=== PATIENT | male | born 1950 | race African-American/Black ===

== ENCOUNTER 2017-09-25 12:13 | Outpatient (CLI) | payer MEDICARE, MEDICAID ==
--- NOTE | 2017-09-25 14:28 | RAD ---
PA AND LATERAL CHEST: Date: 09/25/17 INDICATION: Dyspnea. COMPARISON: Prior exam dated 09/03/17. FINDINGS: No focal consolidation is evident. The aorta is tortuous. No pleural effusion is evident. No acute os seous abnormality is noted. IMPRESSION: No definite acute cardiopulmonary abnormality. POS: [facility]
== END 2017-09-25 12:14 | disposition home or self-care (01) ==
LOC: RAD 12:13
PROVIDERS: ATTEND Internal Medicine Critical Care Medicine
DX: R06.00 Dyspnea, unspecified (principal)
CPT/HCPCS: 71046

== ENCOUNTER 2017-12-03 10:23 | Outpatient (CLI) | payer MEDICARE, MEDICAID | END 2017-12-03 10:24 | disposition home or self-care (01) | LOC: DTY/OP 10:23 | PROVIDERS: ATTEND Family Medicine | DX: E11.65 Type 2 diabetes mellitus with hyperglycemia (principal); R63.4 Abnormal weight loss | CPT/HCPCS: 97802 ==

== ENCOUNTER 2017-12-16 12:40 | Outpatient (CLI) | payer MEDICARE, MEDICAID ==
--- NOTE | 2017-12-16 14:25 | ULT ---
LEFT LOWER EXTREMITY ARTERIAL DOPPLER EVALUATION WITH SPECTRAL ANALYSIS AND COLOR FLOW EVALUATION: DATE: 12/16/17. HISTORY: Left lower extremity pain and swelling. FINDINGS: Perry scale, color flow, Doppler evaluation, and spectral analysis of the left lower extremity arteria l vessels is performed with 2D imaging. There are biphasic waveforms seen within the left lower extr emity, common femoral, superficial femoral, and popliteal arteries with normal velocity measurements in these arterial vessels. There is biphasic waveform present within the left lower extremity profunda femoral artery. There is a suggestion of triphasic waveform involving the left percutaneous transluminal angioplasty, but there are elevated peak systolic velocities in he left lower extremity posterior tibial artery w hich are greater than the arterial vessels in the upper left lower extremity. The greatest velocity measurement is in the distal left posterior tibial artery at 166.5 cm/s suggesting atherosclerotic di sease and narrowing within the left posterior tibial artery. There are biphasic waveforms in the left anterior tibial artery. A triphasic waveform is seen in the left lower extremity dorsalis pedis artery. IMPRESSION: 1. Increased peak systolic velocity measurements in the left lower extremity posterior tibial arteri es suggesting significant stenoses. 2. Triphasic waveforms extending from the left common femoral to popliteal artery with normal veloci ty measurements. POS: [facility]
== END 2017-12-16 12:41 | disposition home or self-care (01) ==
LOC: ULT 12:40
PROVIDERS: ATTEND Family Medicine
DX: M79.89 Other specified soft tissue disorders (principal)
CPT/HCPCS: 93923

== ENCOUNTER 2018-02-05 14:49 | Outpatient (CLI) | payer MEDICARE, MEDICAID | END 2018-02-05 14:50 | disposition home or self-care (01) | LOC: BICULT 14:49 | PROVIDERS: ATTEND Urology | DX: N28.1 Cyst of kidney, acquired (principal); R31.29 Other microscopic hematuria | CPT/HCPCS: 76770 ==

== ENCOUNTER 2022-04-03 12:18 | Outpatient (CLI) | payer MEDICARE, MEDICAID ==
[2022-04-03 13:26] LABS: #Eosinphils 0.3 10x3/uL (0.0-0.5); #Monocytes 0.5 10x3/uL (0.0-1.1); #Neutrophils 3.7 10x3/uL (1.5-8.4); %Basophils 0.7 % (0.0-2.0); %Eosinophils 4.3 % (0.0-6.0); %Lymphocytes 22.2 % (18.0-47.0); %Monocytes 8.9 % (0.0-10.0); %Neutrophils 63.7 % (40.0-75.0); Mean Corpuscular HGB CONC 33.6 g/dL (32.0-36.0); Mean Corpuscular Hemoglobin 26.3 pg (27.0-33.0); Mean Corpuscular Volume 78.4 fl (81.2-95.1); Mean Platelet Volume 11.1 fl (7.4-10.4); Platelet Count 185 10x3/uL (150-450); Red Blood Cell (RBC) Count 3.42 10x6/uL (4.32-5.72); White Blood Cell (WBC) Count 5.8 10x3/uL (3.5-10.5)
[2022-04-03 13:49] LABS: Anion Gap 10 mmol/L (10-20); BUN (Urea Nitrogen) 30 mg/dL (8.4-25.7); Calc. Creatinine Clearance 0 mL/min (70-130); Carbon Dioxide 23 mmol/L (23-31); Chloride 109 mmol/L (98-107); Estimated GFR 10; Glucose 185 mg/dL (80-115); Potassium 3.6 mmol/L (3.5-5.1); Sodium 138 mmol/L (136-145)
== END 2022-04-03 12:19 | disposition home or self-care (01) ==
LOC: LABBT 12:18
PROVIDERS: ATTEND Family Medicine
DX: Z01.818 Encounter for other preprocedural examination (principal); R09.89 Other specified symptoms and signs involving the circulatory and respiratory systems; Z20.822 Contact with and (suspected) exposure to COVID-19
CPT/HCPCS: 71046; 80048; 85025; 87811; 93005; 93010

== ENCOUNTER 2022-04-05 05:30 | Inpatient (IN) | payer OTHER, MEDICAID ==
[2022-04-05] MEDS ORDERED: Bupivacaine 0.25% HCL 30 ML VIAL ONE (07:01)
[2022-04-05] MEDS ORDERED: Heparin 10,000 UNITS/ 10 ML VIAL ONE ×2 (07:01→08:33)
[2022-04-05] MEDS ORDERED: Protamine Sulfate 50 MG/5 ML VIAL ONE (07:01)
[2022-04-05] MEDS ORDERED: Heparin 5,000 UNITS/ML VIAL ONE (07:01)
[2022-04-05] MEDS ORDERED: EPINEPHrine 1 MG/ML AMP ONE (07:01)
[2022-04-05] MEDS ORDERED: Lidocaine 1% (PF) 30 ML VIAL ONE (07:05)
[2022-04-05] MEDS ORDERED: Acetaminophen 500 MG TAB ONE (07:16)
[2022-04-05] MEDS ORDERED: Midazolam HCl 2 mg/2 ml Vial ONE ×2 (07:37→07:55)
[2022-04-05] MEDS ORDERED: Ropivacaine 0.5% HCl/PF (150 MG/30 ML VIAL) ONE ×2 (07:53→08:14)
[2022-04-05] MEDS ORDERED: Dextrose 50% Abboject 50 ML SYRINGE ONE (08:05)
[2022-04-05] MEDS ORDERED: Sodium Chloride 0.9% 0 ML ONE (08:10)
[2022-04-05] MEDS ORDERED: CEFAZOLIN 2 GM VIAL ONE (08:10)
[2022-04-05] MEDS ORDERED: Sodium Chloride 0.9% 100 ML ONE (08:11)
[2022-04-05] MEDS ORDERED: Ondansetron PF 4 MG/2 ML Vial IVP PRN (11:56)
[2022-04-05] MEDS ORDERED: Ondansetron ODT 4 MG TAB PO PRN (11:56)
[2022-04-05] MEDS ORDERED: HumaLOG 300 UNITS/3 ML VIAL SC PRN (11:56)
[2022-04-05] MEDS ORDERED: Acetaminophen 500 MG TAB PO PRN (11:56)
[2022-04-05] MEDS ORDERED: Dextrose 50% Abboject 50 ML SYRINGE SLOW IVP PRN (11:56)
[2022-04-05] MEDS ORDERED: Dextrose 5% in Water 1,000 ML IV PRN (11:56)
[2022-04-05] MEDS ORDERED: Albuterol Sulfate 2.5 mg/3 ml Neb NEB PRN (13:07)
[2022-04-05 14:52] LABS: HBSAB Concentration Less than 8.00 mIU/mL; HBSAg Index 0.26 S/CO (0-0.99); Hep B Surf AB Non-Reactive (NonReactive); Hep B Surf Ag Non-Reactive S/CO (NonReactive)
[2022-04-05 16:06] LABS: Hep C Index 2.56 S/CO (0-0.79)
[2022-04-05 16:08] LABS: Hep B Core Total Index 1.65 S/CO (0-0.79)
[2022-04-05 16:09] LABS: Hep C IgG Ab Reflex HepC Qnt (NonReactive)
[2022-04-05 16:13] LABS: Hep B Core Total Ab Reactive (NonReactive)
[2022-04-05 17:09] VITALS: BMI 28.1
[2022-04-05] MEDS ORDERED: Tuberculin PPD 0.1 ML VIAL I-DERMAL SCH (17:15)
[2022-04-05] MEDS ORDERED: Epoetin (ESRD) 10,000 UNITS/ML VIAL SC SCH (17:30)
[2022-04-05] MEDS: Pregabalin 50 MG CAP PO SCH ×2 (17:32→20:31)
[2022-04-05] MEDS: HYDROcodone/Acetaminophen 5/325 mg Tablet PO PRN ×2 (17:34→21:49)
[2022-04-05] MEDS: Ezetimibe 10 MG TAB PO SCH (20:30)
[2022-04-05] MEDS: Atorvastatin Calcium 40 MG TAB PO SCH (20:30)
[2022-04-05] MEDS: Famotidine 20 MG TAB PO SCH (20:31)
[2022-04-06] MEDS: HYDROcodone/Acetaminophen 5/325 mg Tablet PO PRN ×4 (04:06→22:38)
[2022-04-06 05:47] LABS: #Eosinphils 0.2 thou/uL (0.0-0.7); #Lymphocytes 1.4 thou/uL (1.20-3.40); #Monocytes 0.6 thou/uL (0.11-0.59); #Neutrophils 3.7 thou/uL (1.40-6.50); %Basophils 0.4 % (0.0-1.0); %Eosinophils 3.1 % (0.0-10.0); %Monocytes 10.4 % (0.0-10.0); %Neutrophils 62.1 % (42.0-75.0); Hemoglobin 9.4 g/dL (14.0-18.0); Mean Corpuscular HGB CONC 33.7 g/dL (32.0-36.0); Mean Corpuscular Hemoglobin 27.7 pg (27.0-31.0); Mean Corpuscular Volume 82.1 fL (78.0-98.0); Mean Platelet Volume 8.5 fL (7.4-10.4); Platelet Count 146 thou/uL (130-400); RBC Distribution Width 12.8 % (11.5-14.5); Red Blood Cell (RBC) Count 3.39 mill/uL (4.70-6.10); White Blood Cell (WBC) Count 5.9 thou/uL (4.8-10.8)
[2022-04-06 06:01] LABS: Phosphorus 3.7 mg/dL (2.3-4.7)
[2022-04-06 06:02] LABS: Anion Gap 9 mmol/L (10-20); BUN (Urea Nitrogen) 32 mg/dL (8.4-25.7); Calc. Creatinine Clearance 16 mL/min (70-130); Calcium 8.3 mg/dL (7.8-10.44); Carbon Dioxide 26 mmol/L (23-31); Chloride 109 mmol/L (98-107); Estimated GFR 12; Glucose 123 mg/dL (80-115); Potassium 3.4 mmol/L (3.5-5.1); Sodium 141 mmol/L (136-145)
[2022-04-06] MEDS: Pregabalin 50 MG CAP PO SCH ×3 (08:11→20:56)
[2022-04-06] MEDS: Calcitriol 0.25 MCG CAP PO SCH (08:11)
[2022-04-06] MEDS: Famotidine 20 MG TAB PO SCH ×2 (08:12→20:55)
[2022-04-06] MEDS ORDERED: Potassium Chloride 20 MEQ TAB PO SCH (08:15)
[2022-04-06] MEDS ORDERED: Heparin 10,000 UNITS/ 10 ML VIAL ONE (08:27)
[2022-04-06] MEDS ORDERED: FLU VACC QS2022-23(65YR UP)/PF 240 MCG/0.7 ML SYRINGE IM ONE (09:00)
[2022-04-06] MEDS: hydrALAZINE 20 MG/ML VIAL SLOW IVP PRN (18:38)
[2022-04-06] MEDS: Atorvastatin Calcium 40 MG TAB PO SCH (20:55)
[2022-04-06] MEDS: Ezetimibe 10 MG TAB PO SCH (20:55)
[2022-04-06] MEDS: Metoprolol Tartrate 50 MG TAB PO SCH (20:57)
[2022-04-06] MEDS: HumaLOG 300 UNITS/3 ML VIAL SC PRN (22:37)
[2022-04-07] MEDS: hydrALAZINE 20 MG/ML VIAL SLOW IVP PRN ×3 (00:03→23:51)
[2022-04-07 05:22] LABS: #Eosinphils 0.2 thou/uL (0.0-0.7); #Lymphocytes 1.8 thou/uL (1.20-3.40); #Monocytes 0.8 thou/uL (0.11-0.59); #Neutrophils 6.5 thou/uL (1.40-6.50); %Basophils 0.3 % (0.0-1.0); %Eosinophils 1.8 % (0.0-10.0); %Lymphocytes 19.7 % (21.0-51.0); %Monocytes 8.1 % (0.0-10.0); Hemoglobin 10.5 g/dL (14.0-18.0); Mean Corpuscular HGB CONC 33.2 g/dL (32.0-36.0); Mean Corpuscular Hemoglobin 27.3 pg (27.0-31.0); Mean Corpuscular Volume 82.2 fL (78.0-98.0); Mean Platelet Volume 9.1 fL (7.4-10.4); Platelet Count 169 thou/uL (130-400); Red Blood Cell (RBC) Count 3.84 mill/uL (4.70-6.10); White Blood Cell (WBC) Count 9.3 thou/uL (4.8-10.8)
[2022-04-07 05:38] LABS: Anion Gap 13 mmol/L (10-20); BUN (Urea Nitrogen) 33 mg/dL (8.4-25.7); Calc. Creatinine Clearance 16 mL/min (70-130); Calcium 8.4 mg/dL (7.8-10.44); Carbon Dioxide 25 mmol/L (23-31); Chloride 102 mmol/L (98-107); Estimated GFR 12; Glucose 160 mg/dL (80-115); Iron 41 ug/dL (65-175); Iron Binding Capacity, Total 246 mcg/dL (261-462); Potassium 3.7 mmol/L (3.5-5.1); Sodium 136 mmol/L (136-145)
[2022-04-07] MEDS: HYDROcodone/Acetaminophen 5/325 mg Tablet PO PRN ×2 (05:50→19:37)
[2022-04-07] MEDS ORDERED: Amlodipine 5 MG TAB PO SCH (09:00)
[2022-04-07] MEDS: Calcitriol 0.25 MCG CAP PO SCH (09:01)
[2022-04-07] MEDS: Pregabalin 50 MG CAP PO SCH ×3 (09:01→20:48)
[2022-04-07] MEDS: Famotidine 20 MG TAB PO SCH ×2 (09:03→20:48)
[2022-04-07] MEDS: Metoprolol Tartrate 50 MG TAB PO SCH ×2 (09:06→20:48)
[2022-04-07] MEDS ORDERED: Iron, Sodium Ferric Gluconate 250 MG in Sodium Chloride 0.9% 250 ML 250 ML IVPB SCH (11:45)
[2022-04-07] MEDS: Ezetimibe 10 MG TAB PO SCH (20:48)
[2022-04-07] MEDS: Atorvastatin Calcium 40 MG TAB PO SCH (20:48)
[2022-04-07] MEDS: Insulin Glargine 30 UNITS/0.3 ML VIAL SC SCH (20:48)
[2022-04-07] MEDS: HumaLOG 300 UNITS/3 ML VIAL SC PRN (20:49)
[2022-04-08] MEDS: hydrALAZINE 20 MG/ML VIAL SLOW IVP PRN ×3 (03:48→23:32)
[2022-04-08] MEDS: Amlodipine 10 MG TAB PO SCH (09:10)
[2022-04-08] MEDS: Pregabalin 50 MG CAP PO SCH ×3 (09:10→20:02)
[2022-04-08] MEDS: Alogliptin 6.25 MG TAB PO SCH (09:11)
[2022-04-08] MEDS: Metoprolol Tartrate 50 MG TAB PO SCH ×2 (09:11→20:03)
[2022-04-08] MEDS: Calcitriol 0.25 MCG CAP PO SCH (09:11)
[2022-04-08] MEDS: Famotidine 20 MG TAB PO SCH (09:11)
[2022-04-08] MEDS: Ferrous Sulfate 325 MG TAB PO SCH (16:05)
[2022-04-08] MEDS: Atorvastatin Calcium 40 MG TAB PO SCH (20:03)
[2022-04-08] MEDS: Ezetimibe 10 MG TAB PO SCH (20:03)
[2022-04-08] MEDS: Insulin Glargine 30 UNITS/0.3 ML VIAL SC SCH (20:03)
[2022-04-09] MEDS ORDERED: Famotidine 20 MG TAB PO SCH (09:00)
[2022-04-09] MEDS ORDERED: Metoprolol Tartrate 50 MG TAB PO SCH (09:00)
[2022-04-09] MEDS: Pregabalin 50 MG CAP PO SCH ×2 (09:36→14:50)
[2022-04-09] MEDS: Calcitriol 0.25 MCG CAP PO SCH (09:36)
[2022-04-09] MEDS: Alogliptin 6.25 MG TAB PO SCH (09:36)
[2022-04-09] MEDS: Amlodipine 10 MG TAB PO SCH (09:36)
[2022-04-09] MEDS: Ferrous Sulfate 325 MG TAB PO SCH (09:36)
[2022-04-09] MEDS ORDERED: Heparin 10,000 UNITS/ 10 ML VIAL ONE (12:15)
[2022-04-09 14:57] VITALS: BP 159/79; TEMP 98.8
== END 2022-04-09 16:30 | disposition home or self-care (01) | DRG 673 ==
LOC: SDC 05:30 → 2NO 11:56
PROVIDERS: ADMIT Internal Medicine; ATTEND Internal Medicine
PROC: 031C0ZF Bypass Left Radial Artery to Lower Arm Vein, Open Approach (ICD-10-PCS; principal; 2022-04-05)
PROC: 5A1D70Z Performance of Urinary Filtration, Intermittent, Less than 6 Hours Per Day (ICD-10-PCS; 2022-04-05)
PROC: 0JH60XZ Insertion of Tunneled Vascular Access Device into Chest Subcutaneous Tissue and Fascia, Open Approach (ICD-10-PCS; 2022-04-05)
PROC: 02HV33Z Insertion of Infusion Device into Superior Vena Cava, Percutaneous Approach (ICD-10-PCS; 2022-04-05)
PROC: B5181ZA Fluoroscopy of Superior Vena Cava using Low Osmolar Contrast, Guidance (ICD-10-PCS; 2022-04-05)
PROC: B548ZZA Ultrasonography of Superior Vena Cava, Guidance (ICD-10-PCS; 2022-04-05)
DX: I12.0 Hypertensive chronic kidney disease with stage 5 chronic kidney disease or end stage renal disease (principal); N18.6 End stage renal disease; Z20.822 Contact with and (suspected) exposure to COVID-19; N25.81 Secondary hyperparathyroidism of renal origin; E87.70 Fluid overload, unspecified; E11.22 Type 2 diabetes mellitus with diabetic chronic kidney disease; Z21 Asymptomatic human immunodeficiency virus [HIV] infection status; E78.5 Hyperlipidemia, unspecified; J44.9 Chronic obstructive pulmonary disease, unspecified; E11.649 Type 2 diabetes mellitus with hypoglycemia without coma; N52.9 Male erectile dysfunction, unspecified; D63.1 Anemia in chronic kidney disease; E87.6 Hypokalemia; F17.210 Nicotine dependence, cigarettes, uncomplicated; Z86.73 Personal history of transient ischemic attack (TIA), and cerebral infarction without residual deficits; Z98.890 Other specified postprocedural states; Z79.899 Other long term (current) drug therapy; Z79.4 Long term (current) use of insulin; Z83.3 Family history of diabetes mellitus; Z82.49 Family history of ischemic heart disease and other diseases of the circulatory system; Z82.3 Family history of stroke; Z86.19 Personal history of other infectious and parasitic diseases
CPT/HCPCS: 36415; 36416; 71045; 80048; 82728; 83540; 83550; 83970; 84100; 85025; 86704; 87340; 90471; 90662; 90935; C1713; C1752; C1776; G0008; G0257; J0171; J0360; J0690; J1644; J1815; J2001; J2250; J2720; J2795; J2916; J3490; J7050; J7620; J7999; Q4081; S0020; U0003; U0005

== ENCOUNTER 2022-04-17 11:08 | Day surgery (SDC) | payer MEDICAID, OTHER ==
[2022-04-16 12:21] VITALS: BMI 27.3
[2022-04-17 12:17] LABS: #Eosinphils 0.2 thou/uL (0.0-0.7); #Lymphocytes 1.3 thou/uL (1.20-3.40); #Monocytes 0.4 thou/uL (0.11-0.59); #Neutrophils 3.1 thou/uL (1.40-6.50); %Basophils 0.4 % (0.0-1.0); %Eosinophils 3.1 % (0.0-10.0); %Lymphocytes 26.9 % (21.0-51.0); %Monocytes 8.2 % (0.0-10.0); %Neutrophils 61.4 % (42.0-75.0); Hemoglobin 9.9 g/dL (14.0-18.0); Mean Corpuscular HGB CONC 32.2 g/dL (32.0-36.0); Mean Corpuscular Hemoglobin 27.1 pg (27.0-31.0); Mean Corpuscular Volume 84.1 fL (78.0-98.0); Mean Platelet Volume 9.1 fL (7.4-10.4); Platelet Count 169 thou/uL (130-400); RBC Distribution Width 12.7 % (11.5-14.5); Red Blood Cell (RBC) Count 3.64 mill/uL (4.70-6.10)
[2022-04-17 12:27] LABS: Anion Gap 13 mmol/L (10-20); BUN (Urea Nitrogen) 33 mg/dL (8.4-25.7); Calc. Creatinine Clearance 13 mL/min (70-130); Calcium 8.7 mg/dL (7.8-10.44); Carbon Dioxide 25 mmol/L (23-31); Chloride 106 mmol/L (98-107); Estimated GFR 9; Glucose 85 mg/dL (80-115); Potassium 4.1 mmol/L (3.5-5.1); Sodium 140 mmol/L (136-145)
[2022-04-17] MEDS ORDERED: Midazolam HCl 2 mg/2 ml Vial ONE (12:42)
[2022-04-17] MEDS ORDERED: Bupivacaine PF 0.5% 30 ML VIAL ONE (13:21)
[2022-04-17] MEDS ORDERED: Heparin 10,000 UNITS/ 10 ML VIAL ONE (13:21)
[2022-04-17] MEDS ORDERED: Lidocaine 2% PF 5 ML VIAL ONE (13:21)
[2022-04-17] MEDS ORDERED: EPINEPHrine 1 MG/ML AMP ONE (13:22)
[2022-04-17] MEDS ORDERED: CEFAZOLIN 2 GM VIAL ONE (13:55)
[2022-04-17] MEDS ORDERED: Sodium Chloride 0.9% 100 ML ONE (13:55)
[2022-04-17] MEDS ORDERED: PROPOFOL 200 MG/20 ML VIAL ONE (14:07)
== END 2022-04-17 15:53 | disposition home or self-care (01) ==
LOC: SDC 11:08
PROVIDERS: ATTEND Specialist
PROC: 0JPT3XZ Removal of Tunneled Vascular Access Device from Trunk Subcutaneous Tissue and Fascia, Percutaneous Approach (ICD-10-PCS; principal; 2022-04-17)
PROC: 02PY33Z Removal of Infusion Device from Great Vessel, Percutaneous Approach (ICD-10-PCS; 2022-04-17)
PROC: 0JH63XZ Insertion of Tunneled Vascular Access Device into Chest Subcutaneous Tissue and Fascia, Percutaneous Approach (ICD-10-PCS; 2022-04-17)
PROC: 02HV33Z Insertion of Infusion Device into Superior Vena Cava, Percutaneous Approach (ICD-10-PCS; 2022-04-17)
DX: I12.0 Hypertensive chronic kidney disease with stage 5 chronic kidney disease or end stage renal disease (principal); E11.22 Type 2 diabetes mellitus with diabetic chronic kidney disease; N18.6 End stage renal disease; B19.20 Unspecified viral hepatitis C without hepatic coma; T82.41XA Breakdown (mechanical) of vascular dialysis catheter, initial encounter; E78.00 Pure hypercholesterolemia, unspecified; J44.9 Chronic obstructive pulmonary disease, unspecified; G89.29 Other chronic pain; M54.9 Dorsalgia, unspecified; N40.0 Benign prostatic hyperplasia without lower urinary tract symptoms; N52.9 Male erectile dysfunction, unspecified; F19.11 Other psychoactive substance abuse, in remission; Z86.73 Personal history of transient ischemic attack (TIA), and cerebral infarction without residual deficits; Z87.891 Personal history of nicotine dependence; Z21 Asymptomatic human immunodeficiency virus [HIV] infection status; Z79.4 Long term (current) use of insulin; Z79.84 Long term (current) use of oral hypoglycemic drugs; Z79.899 Other long term (current) drug therapy; Y81.3 Surgical instruments, materials and general- and plastic-surgery devices (including sutures) associated with adverse incidents
CPT/HCPCS: 36558; 36589; 71045; 80048; 85025; C1752; J0171; J0690; J1644; J2001; J2250; J2704; J3490; S0020

== ENCOUNTER 2022-06-17 07:01 | Day surgery (SDC) | payer OTHER ==
[2022-06-14 12:04] VITALS: BMI 25.8
[2022-06-17 09:24] VITALS: BP 156/78; TEMP 98.7
[2022-06-17] MEDS ORDERED: Iopamidol 300 61% 100 ML VIAL FS ONE (15:47)
== END 2022-06-17 10:15 | disposition home or self-care (01) ==
LOC: SPEC 07:01
PROVIDERS: ATTEND Surgery
PROC: B51W1ZZ Fluoroscopy of Dialysis Shunt/Fistula using Low Osmolar Contrast (ICD-10-PCS; principal; 2022-06-17)
DX: T82.590A Other mechanical complication of surgically created arteriovenous fistula, initial encounter (principal); N18.6 End stage renal disease; Z79.4 Long term (current) use of insulin; Z79.899 Other long term (current) drug therapy; Z99.2 Dependence on renal dialysis; Y81.3 Surgical instruments, materials and general- and plastic-surgery devices (including sutures) associated with adverse incidents
CPT/HCPCS: 36901; Q9967

== ENCOUNTER 2022-07-05 06:33 | Day surgery (SDC) | payer OTHER, MEDICAID ==
[2022-06-19 15:09] VITALS: BMI 27.3
[2022-07-05] MEDS ORDERED: Lidocaine 1% (PF) 30 ML VIAL ONE ×2 (08:21→09:01)
[2022-07-05] MEDS ORDERED: Bupivacaine PF 0.5% 30 ML VIAL ONE (08:21)
[2022-07-05] MEDS ORDERED: Fentanyl 100 MCG/2 ML VIAL ONE (08:21)
[2022-07-05 08:47] LABS: Anion Gap 15 mmol/L (10-20); BUN (Urea Nitrogen) 42 mg/dL (8.4-25.7); Calc. Creatinine Clearance 12 mL/min (70-130); Calcium 9.4 mg/dL (7.8-10.44); Carbon Dioxide 26 mmol/L (23-31); Chloride 103 mmol/L (98-107); Estimated GFR 8; Glucose 180 mg/dL (80-115); Sodium 140 mmol/L (136-145)
[2022-07-05] MEDS ORDERED: Protamine Sulfate 50 MG/5 ML VIAL ONE (09:01)
[2022-07-05] MEDS ORDERED: Heparin 5,000 UNITS/ML VIAL ONE (09:01)
[2022-07-05] MEDS ORDERED: Bupivacaine/Epinephrine 0.25% 30 ML VIAL ONE (09:01)
[2022-07-05] MEDS ORDERED: CEFAZOLIN 2 GM VIAL ONE ×2 (09:02→09:10)
[2022-07-05] MEDS ORDERED: Sodium Chloride 0.9% 100 ML ONE ×2 (09:02→09:10)
[2022-07-05 09:48] LABS: #Eosinphils 0.3 thou/uL (0.0-0.7); #Lymphocytes 1.6 thou/uL (1.20-3.40); #Monocytes 0.5 thou/uL (0.11-0.59); #Neutrophils 2.8 thou/uL (1.40-6.50); %Basophils 0.7 % (0.0-1.0); %Eosinophils 5.4 % (0.0-10.0); %Lymphocytes 31.2 % (21.0-51.0); %Monocytes 9.6 % (0.0-10.0); %Neutrophils 53.1 % (42.0-75.0); Hemoglobin 12.2 g/dL (14.0-18.0); Mean Corpuscular HGB CONC 34.2 g/dL (32.0-36.0); Mean Corpuscular Hemoglobin 27.8 pg (27.0-31.0); Mean Corpuscular Volume 81.3 fl (78.0-98.0); Mean Platelet Volume 9.6 fL (7.4-10.4); Platelet Count 119 10x3/uL (130-400); RBC Distribution Width 14.2 % (11.5-14.5); Red Blood Cell (RBC) Count 4.39 mill/uL (4.70-6.10); White Blood Cell (WBC) Count 5.3 10x3/uL (4.8-10.8)
[2022-07-05 09:49] LABS: MDiff Complete? YES; Platelet Morphology Comment Appears Decreased; Polychromasia SLIGHT = 2-3 cells (100X) (0-2/hpf)
[2022-07-05] MEDS ORDERED: Glycopyrrolate 0.2 MG/ML 5 ML SYRINGE ONE (10:46)
[2022-07-05] MEDS ORDERED: Heparin 1,000 UNITS/ML VIAL ONE (13:11)
== END 2022-07-05 13:38 | disposition home or self-care (01) ==
LOC: SDC 06:33
PROVIDERS: ATTEND Surgery
PROC: 03LY0ZZ Occlusion of Upper Artery, Open Approach (ICD-10-PCS; principal; 2022-07-05)
PROC: 03180ZF Bypass Left Brachial Artery to Lower Arm Vein, Open Approach (ICD-10-PCS; 2022-07-05)
DX: I12.0 Hypertensive chronic kidney disease with stage 5 chronic kidney disease or end stage renal disease (principal); E11.22 Type 2 diabetes mellitus with diabetic chronic kidney disease; N18.6 End stage renal disease; T82.590A Other mechanical complication of surgically created arteriovenous fistula, initial encounter; I82.612 Acute embolism and thrombosis of superficial veins of left upper extremity; J44.9 Chronic obstructive pulmonary disease, unspecified; E78.00 Pure hypercholesterolemia, unspecified; N40.0 Benign prostatic hyperplasia without lower urinary tract symptoms; G89.29 Other chronic pain; M54.9 Dorsalgia, unspecified; Z21 Asymptomatic human immunodeficiency virus [HIV] infection status; Z86.73 Personal history of transient ischemic attack (TIA), and cerebral infarction without residual deficits; Z87.891 Personal history of nicotine dependence; Z79.4 Long term (current) use of insulin; Z79.84 Long term (current) use of oral hypoglycemic drugs; Z79.899 Other long term (current) drug therapy; Z99.2 Dependence on renal dialysis; Y81.3 Surgical instruments, materials and general- and plastic-surgery devices (including sutures) associated with adverse incidents
CPT/HCPCS: 36821; 37607; 80048; 85025; 93005; C1713; C1776; 93010; J1644; J2001; J2720; J3010; J3490; S0020

== ENCOUNTER 2023-01-10 14:30 | Emergency (ER) | payer OTHER, MEDICAID ==
[2023-01-10 15:16] LABS: #Basophils 0.1 thou/uL (0.0-0.2); #Eosinphils 0.3 thou/uL (0.0-0.7); #Monocytes 0.5 thou/uL (0.11-0.59); #Neutrophils 2.6 thou/uL (1.40-6.50); %Lymphocytes 31.1 % (21.0-51.0); %Monocytes 9.6 % (0.0-10.0); %Neutrophils 52.9 % (42.0-75.0); Hemoglobin 11.8 g/dL (14.0-18.0); Mean Corpuscular HGB CONC 34.9 g/dL (32.0-36.0); Mean Corpuscular Hemoglobin 28.3 pg (27.0-31.0); Mean Corpuscular Volume 81.1 fl (78.0-98.0); Mean Platelet Volume 11.1 fL (7.4-10.4); Platelet Count 152 10x3/uL (130-400); RBC Distribution Width 14.3 % (11.5-14.5); Red Blood Cell (RBC) Count 4.17 mill/uL (4.70-6.10)
[2023-01-10 15:45] LABS: ALT (SGPT) 22 U/L (8-55); AST (SGOT) 21 U/L (5-34); Albumin 4.5 g/dL (3.4-4.8); Alkaline Phosphatase 78 U/L (40-110); Anion Gap 15 mmol/L (10-20); BUN (Urea Nitrogen) 19 mg/dL (8.4-25.7); Bilirubin, Total 0.9 mg/dL (0.2-1.2); CK (CPK) 239 U/L (30-200); Calc. Creatinine Clearance 0 mL/min (70-130); Calcium 9.6 mg/dL (7.8-10.44); Carbon Dioxide 29 mmol/L (23-31); Chloride 99 mmol/L (98-107); Estimated GFR 14; Globulin 3.4 g/dL (2.4-3.5); Glucose 151 mg/dL (80-115); Lipase 132 U/L (8-78); Potassium 2.9 mmol/L (3.5-5.1); Protein, Total 7.9 g/dL (5.8-8.1); Sodium 140 mmol/L (136-145)
[2023-01-10 16:05] LABS: CKMB 3.4 ng/mL (0-6.6)
== END 2023-01-10 16:05 | disposition home or self-care (01) ==
LOC: ERS 14:30
DX: R10.84 Generalized abdominal pain (principal); E11.9 Type 2 diabetes mellitus without complications; J44.9 Chronic obstructive pulmonary disease, unspecified; I10 Essential (primary) hypertension; Z86.73 Personal history of transient ischemic attack (TIA), and cerebral infarction without residual deficits; Z87.891 Personal history of nicotine dependence
CPT/HCPCS: 36415; 71045; 80053; 82550; 82553; 83690; 83735; 83880; 84484; 85025; 93005

== ENCOUNTER 2023-06-18 13:38 | Emergency (ER) | payer OTHER, MEDICAID ==
[2023-06-18 14:47] LABS: #Basophils 0.1 thou/uL (0.0-0.2); #Eosinphils 0.3 thou/uL (0.0-0.7); #Monocytes 0.4 thou/uL (0.11-0.59); #Neutrophils 2.3 thou/uL (1.40-6.50); %Basophils 1.3 % (0.0-1.0); %Eosinophils 6.6 % (0.0-10.0); %Lymphocytes 34.9 % (21.0-51.0); %Monocytes 7.4 % (0.0-10.0); %Neutrophils 49.2 % (42.0-75.0); Hematocrit 34.5 % (42.0-52.0); Hemoglobin 11.9 g/dL (14.0-18.0); Mean Corpuscular HGB CONC 34.5 g/dL (32.0-36.0); Mean Corpuscular Hemoglobin 29.2 pg (27.0-31.0); Mean Corpuscular Volume 84.8 fl (78.0-98.0); Mean Platelet Volume 10.6 fL (7.4-10.4); Platelet Count 167 10x3/uL (130-400); RBC Distribution Width 13.7 % (11.5-14.5); Red Blood Cell (RBC) Count 4.07 mill/uL (4.70-6.10); White Blood Cell (WBC) Count 4.7 10x3/uL (4.8-10.8)
[2023-06-18 15:12] LABS: ALT (SGPT) 22 U/L (8-55); AST (SGOT) 19 U/L (5-34); Albumin 4.5 g/dL (3.4-4.8); Alkaline Phosphatase 72 U/L (40-110); Anion Gap 15 mmol/L (10-20); BUN (Urea Nitrogen) 16 mg/dL (8.4-25.7); Bilirubin, Total 1.1 mg/dL (0.2-1.2); Calc. Creatinine Clearance 0 mL/min (70-130); Calcium 9.1 mg/dL (7.8-10.44); Carbon Dioxide 27 mmol/L (23-31); Chloride 98 mmol/L (98-107); Estimated GFR 14; Globulin 3.4 g/dL (2.4-3.5); Glucose 169 mg/dL (83-110); Magnesium 1.9 mg/dL (1.6-2.6); Potassium 3.2 mmol/L (3.5-5.1); Protein, Total 7.9 g/dL (5.8-8.1); Sodium 137 mmol/L (136-145)
[2023-06-18 15:16] LABS: Troponin I 0.048 ng/mL (< 0.028)
[2023-06-18 15:57] LABS: Phosphorus 2.7 mg/dL (2.3-4.7)
== END 2023-06-18 22:30 | disposition left against medical advice (07) ==
LOC: ERS 13:38
DX: R56.9 Unspecified convulsions (principal); I12.0 Hypertensive chronic kidney disease with stage 5 chronic kidney disease or end stage renal disease; E11.22 Type 2 diabetes mellitus with diabetic chronic kidney disease; N18.6 End stage renal disease; J44.9 Chronic obstructive pulmonary disease, unspecified; B20 Human immunodeficiency virus [HIV] disease; Z99.2 Dependence on renal dialysis; Z79.4 Long term (current) use of insulin; Z87.891 Personal history of nicotine dependence
CPT/HCPCS: 36415; 70450; 71045; 80053; 83735; 84100; 84484; 85025; 93005

== ENCOUNTER 2023-06-29 12:41 | Emergency (ER) | payer OTHER, MEDICAID ==
[2023-06-29 13:58] LABS: #Eosinphils 0.2 thou/uL (0.0-0.7); #Monocytes 0.4 thou/uL (0.11-0.59); #Neutrophils 2.8 thou/uL (1.40-6.50); %Basophils 0.7 % (0.0-1.0); %Eosinophils 4.1 % (0.0-10.0); %Lymphocytes 21.6 % (21.0-51.0); %Monocytes 8.7 % (0.0-10.0); %Neutrophils 64.7 % (42.0-75.0); Hematocrit 34.2 % (42.0-52.0); Hemoglobin 11.3 g/dL (14.0-18.0); Mean Corpuscular Hemoglobin 28.5 pg (27.0-31.0); Mean Corpuscular Volume 86.4 fl (78.0-98.0); Mean Platelet Volume 10.6 fL (7.4-10.4); Platelet Count 145 10x3/uL (130-400); Red Blood Cell (RBC) Count 3.96 mill/uL (4.70-6.10); White Blood Cell (WBC) Count 4.4 10x3/uL (4.8-10.8)
[2023-06-29 14:30] LABS: ALT (SGPT) 22 U/L (8-55); AST (SGOT) 19 U/L (5-34); Albumin 4.1 g/dL (3.4-4.8); Alkaline Phosphatase 65 U/L (40-110); Anion Gap 13 mmol/L (10-20); BUN (Urea Nitrogen) 21 mg/dL (8.4-25.7); Bilirubin, Total 1.2 mg/dL (0.2-1.2); Calc. Creatinine Clearance 0 mL/min (70-130); Carbon Dioxide 30 mmol/L (23-31); Chloride 100 mmol/L (98-107); Estimated GFR 12; Globulin 3.4 g/dL (2.4-3.5); Glucose 128 mg/dL (83-110); Magnesium 1.8 mg/dL (1.6-2.6); Potassium 3.4 mmol/L (3.5-5.1); Protein, Total 7.5 g/dL (5.8-8.1); Sodium 140 mmol/L (136-145)
== END 2023-06-29 15:18 | disposition home or self-care (01) ==
LOC: ERS 12:41
DX: R55 Syncope and collapse (principal); E11.9 Type 2 diabetes mellitus without complications; Z79.4 Long term (current) use of insulin; I10 Essential (primary) hypertension; J44.9 Chronic obstructive pulmonary disease, unspecified; B20 Human immunodeficiency virus [HIV] disease; Z87.891 Personal history of nicotine dependence; Z79.899 Other long term (current) drug therapy
CPT/HCPCS: 36415; 80053; 83735; 85025; 93005

== ENCOUNTER 2024-04-30 14:38 | Emergency (ER) | payer OTHER, MEDICAID ==
[2024-04-30 16:06] LABS: #Basophils 0.04 10x3/uL (0.0-0.2); %Basophils 0.8 % (0.0-1.0); %Eosinophils 8.7 % (0.0-10.0); %Lymphocytes 22.5 % (21.0-51.0); %Monocytes 7.8 % (0.0-10.0); %Neutrophils 59.8 % (42.0-75.0); Hematocrit 38.4 % (42.0-52.0); Hemoglobin 13.3 g/dL (14.0-18.0); Mean Corpuscular HGB CONC 34.6 g/dL (32.0-36.0); Mean Corpuscular Hemoglobin 28.7 pg (27.0-31.0); Mean Corpuscular Volume 82.8 fL (78.0-98.0); Mean Platelet Volume 11.4 fL (7.4-10.4); Platelet Count 153 10x3/uL (130-400); RBC Distribution Width 13.3 % (11.5-14.5); Red Blood Cell (RBC) Count 4.64 mill/uL (4.70-6.10)
[2024-04-30 16:23] LABS: Anion Gap 16 mmol/L (10-20); BUN (Urea Nitrogen) 22 mg/dL (8.4-25.7); Calc. Creatinine Clearance 0 mL/min (70-130); Calcium 9.1 mg/dL (7.8-10.44); Carbon Dioxide 29 mmol/L (23-31); Chloride 97 mmol/L (98-107); Estimated GFR 10; Glucose 272 mg/dL (83-110); Sodium 139 mmol/L (136-145)
== END 2024-04-30 17:35 | disposition home or self-care (01) ==
LOC: ERS 14:38
DX: R55 Syncope and collapse (principal); E87.6 Hypokalemia; I12.0 Hypertensive chronic kidney disease with stage 5 chronic kidney disease or end stage renal disease; E11.22 Type 2 diabetes mellitus with diabetic chronic kidney disease; N18.6 End stage renal disease; J44.9 Chronic obstructive pulmonary disease, unspecified; Z99.2 Dependence on renal dialysis; Z79.4 Long term (current) use of insulin; Z21 Asymptomatic human immunodeficiency virus [HIV] infection status; Z86.73 Personal history of transient ischemic attack (TIA), and cerebral infarction without residual deficits; Z87.891 Personal history of nicotine dependence
CPT/HCPCS: 36415; 70450; 80048; 85025; 93005